=== PATIENT | male | born 1955 | race Caucasian/White ===

== ENCOUNTER 2017-04-18 10:46 | Emergency (ER) | payer OTHER ==
--- NOTE | ~2017-04-18 | ER ---
PATIENT'S NAME: DUSTIN MONROY [facility] AGE: 62 Y [address] ROOM: [place] [address] LOCATION: [facility] ADMIT DATE: 04/18/2017 ER/Outpatient Report DISCHARGE DATE: FAMILY PHYSICIAN: Sofia Riggins MD ATTENDING PHYSICIAN: Keyur New Time of Arrival: 1048 hours. Time of Evaluation: 1050 hours. CHIEF COMPLAINT: Finger laceration. HISTORY OF PRESENT ILLNESS: The patient states just prior to arrival he was working out in the yard, trying to cut a hose apart with an [employer] knife and ended up cutting his left ring finger. Denies any other injury. Tetanus shot is greater than 10 years ago. ALLERGIES: PENICILLIN, CONTRAST DYE. CURRENT MEDICATIONS: On his chart and reviewed by me. PAST MEDICAL HISTORY: Hypertension, elevated cholesterol. SOCIAL HISTORY: He presented to the ER with his . Denies use of drugs, alcohol, or tobacco. REVIEW OF SYSTEMS: All negative other than those mentioned in the HPI. PHYSICAL EXAMINATION: VITAL SIGNS: He weighs 98.7 kg, blood pressure is 140/66, pulse of 52, respirations 14, temp of 97.5 tympanic, O2 saturation is 94% on room air. GENERAL: He is awake, alert, and oriented x4. SKIN: Sharpes, warm, and dry. RESPIRATIONS: Even and nonlabored. Lung sounds are clear throughout. HEART: Regular rate and rhythm. EXTREMETIES: The patient has a flap-type laceration to the finger pad of the left fourth finger. It is approximately 1.5 cm. EMERGENCY DEPARTMENT COURSE: X-ray was completed. No bony abnormality is seen. Tetanus updated with a PATIENT'S NAME: DUSTIN MONROY [facility] AGE: 62 Y [address] ROOM: [place] [address] LOCATION: [facility] ADMIT DATE: 04/18/2017 ER/Outpatient Report DISCHARGE DATE: FAMILY PHYSICIAN: Sofia Riggins MD ATTENDING PHYSICIAN: Keyur New Tdap. Finger was anesthetized with a digital block, 1% plain Xylocaine. Area was cleansed well with saline and Betadine. Flushed well with saline. Closed with 4-0 Ethilon x6 stitches. The nail was not involved. The patient tolerated the procedure well. IMPRESSION: Finger laceration. PLAN: Home, rest, elevate the hand. Tylenol as needed for pain. Keep the areas clean and dry as possible. Suture removal in 7 to 10 days. He is to see his primary provider in 2 to 3 days if he is concerned about infection, otherwise for suture removal. He verbalized understanding. CJ DING APRN FOR MD ERICA CHAVEZ/consuelo /[id number] d: 04/18/172043 t: 04/27/171933, OUTPATIENT REPORT
== END 2017-04-18 11:55 | disposition disaster alternative care site (69) ==
LOC: GACC 10:46
PROC: 0HQGXZZ Repair Left Hand Skin, External Approach (ICD-10-PCS; principal; 2017-04-18)
DX: S61.215A Laceration without foreign body of left ring finger without damage to nail, initial encounter (principal); I10 Essential (primary) hypertension; E78.00 Pure hypercholesterolemia, unspecified; Z88.0 Allergy status to penicillin; Z91.041 Radiographic dye allergy status; Z79.82 Long term (current) use of aspirin; Z79.899 Other long term (current) drug therapy; Z23 Encounter for immunization; W26.0XXA Contact with knife, initial encounter; Y93.89 Activity, other specified; Y92.096 Garden or yard of other non-institutional residence as the place of occurrence of the external cause